=== PATIENT | female | born 1945 | race Caucasian/White ===

== ENCOUNTER 2022-07-23 05:00 | Day surgery (SDC) | payer OTHER ==
[~2022-07-23] VITALS: Ht 160 cm; Wt 112.9 kg
[2022-07-23] MEDS ORDERED: SIMETHICONE 40 MG/0.6 ML ML ONE (07:16)
[2022-07-23] MEDS ORDERED: LR 1,000 ML IV SCH (07:45)
[2022-07-23] MEDS ORDERED: hydrALAZINE HCL 20 MG/ML VIAL IVP PRN (07:45)
[2022-07-23] MEDS ORDERED: HYDROmorphone 1 MG/ML INJ. CARTRIDGE IVP PRN ×2 (07:45)
[2022-07-23] MEDS ORDERED: MEPERIDINE HCL/PF 25 MG/ML DISP.SYRIN IVP PRN (07:45)
[2022-07-23] MEDS ORDERED: ONDANSETRON HCL 4 MG/2 ML VIAL IVP PRN (07:45)
[2022-07-23] MEDS ORDERED: LABETALOL 100 MG/ 20ML VIAL IVP PRN (07:45)
[2022-07-23] MEDS ORDERED: LIDOCAINE 2%, 20 ML MDV ONE (08:33)
[2022-07-23] MEDS ORDERED: PROPOFOL 200MG/ 20ML VIAL (DIPRIVAN) IV ONE (08:33)
[2022-07-23] MEDS ORDERED: BUPIVACAINE /DEX PF 0.75% SPINAL 2 ML AMP INJ ONE (08:33)
[2022-07-23] MEDS ORDERED: LR 1,000 ML IV.SOLN IV ONE (08:33)
[2022-07-23 09:25] VITALS: BP_SYST 130
== END 2022-07-23 10:15 | disposition home or self-care (01) ==
LOC: SDS 05:00 → SMU 05:00 → SDS 10:15
PROVIDERS: ATTEND Internal Medicine Gastroenterology
DX: Z12.11 Encounter for screening for malignant neoplasm of colon (principal); D12.3 Benign neoplasm of transverse colon; D12.4 Benign neoplasm of descending colon; K62.1 Rectal polyp; K57.30 Diverticulosis of large intestine without perforation or abscess without bleeding; K64.9 Unspecified hemorrhoids; Z79.899 Other long term (current) drug therapy; Z20.822 Contact with and (suspected) exposure to COVID-19
CPT/HCPCS: 71045; 45385; 45380; 87426; 36415; 88305; J3490; J2001; J2704; J7120